=== PATIENT | female | born 1995 | race Caucasian/White ===

== ENCOUNTER 2016-08-01 10:18 | Emergency (ER) | payer BC ==
[~2016-08-01] VITALS: Ht 157.5 cm; Wt 62.0 kg
[2016-08-01 10:30] VITALS: Ht 157.5 cm; Wt 62.0 kg
--- NOTE | 2016-08-01 12:33 | ERD ---
ER Documentation Chief Complaint Date/Time DATE: 08/01/16 TIME: 12:31 Chief Complaint CAME IN VIA INTAKE DUE TO LEFT ARM NUMBNESS AND TACHYCARDIA HPI 20-year-old female comes emergency department with a left arm numbness for the past 3 days associated headache and dizziness. Patient states that the numbness is across the left anterior shoulder wrapping on the posterior aspect goes to her fifth digit. She also states that she has intermittent left-sided numbness in her left leg when she is sitting down. She describes a throbbing headache that is left temporal, she has had this headache on and off for approximately 1 month with associated lightheadedness. She states that pain medication including Tylenol and ibuprofen does seem to help the headache. She denies any blurred vision, weakness associated. ROS All systems reviewed and are negative except as per history of present illness. Medications Home Meds Active Scripts Naproxen* (Naprosyn*) 500 Mg Tablet, 500 MG PO BID Y for PAIN AND/OR INFLAMMATION, #30 TAB Prov:LENO BISHOP PA-C 08/01/16 PMhx/Soc Medical and Surgical Hx: pt denies Medical Hx, pt denies Surgical Hx Hx Alcohol Use: No Hx Substance Use: No Hx Tobacco Use: No Smoking Status: Never smoker Physical Exam Vitals Vital Signs Date Time Temp Pulse Resp B/P Pulse Ox O2 Delivery O2 Flow Rate FiO2 08/01/16 10:30 98.2 114 18 138/83 97 Physical Exam General: Well-developed, well-nourished. The patient appears in no acute distress. HEENT: Head is normocephalic, atraumatic. No scleral icterus. Neck: Supple. Nontender. Lungs: Clear to auscultation. Normal air movement. Heart: Regular rate and rhythm. S1 and S2 are normal. No murmurs, gallops, or rubs. Abdomen: Soft, nontender, nondistended. Bowel sounds are normoactive. Extremities: Reproducible numbness in the left arm and shoulder internal rotation. There are no bony deformities, patient has capillary refill less than 2 seconds bilaterally. Neuro: M/S: Alert and oriented Face: EOMI, CN II-XII grossly intact Motor: Normal strength throughout Sensation: Normal sensation throughout Speech: Normal Cerebel: Normal coordination Normal gait. Skin: Normal turgor. No rash or lesions. Results 24 hrs 12-lead EKG(interpreted by supervising physician): Dr. Bartlett Rate/Rhythm: Normal Sinus Rhythm, rate of 103 QRS, ST, T-waves: No changes consistent w/ acute ischemia, no intervals, no dysrhythmias, no ectopy Impression: No evidence of ischemia or arrhythmia PROCEDURE: CT brain without contrast CLINICAL INDICATION: Headache, dizziness, left-sided numbness TECHNIQUE: CT of the brain without contrast was performed on a multidetector CT scanner, with multiplanar reformats. One or more of the following dose reduction techniques were used: Automated exposure control, adjustment in mA and / or kV according to patient size, use of iterative reconstructive technique. CTDIvol = 32 mGy; DLP = 451 mGy-cm. COMPARISON: None available FINDINGS: No acute intracranial hemorrhage is identified. No extra-axial fluid collection is seen. There is no mass effect. No midline shift is identified. Ventricles and sulci are within normal limits for size and configuration. The density of the brain is within normal limits. De Leon-white differentiation is preserved. Osseous structures are unremarkable. Mastoid air cells and imaged paranasal sinuses grossly clear. IMPRESSION: Unremarkable noncontrast CT of the brain. RPTAT: VV .Hamlet Reyes MD, MD Date Time Electronically viewed and signed by .Hamlet Reyes MD, MD on 08/01/2016 13:22 Procedures/MDM 20-year-old female presents with headache, dizziness, left arm numbness as well as associated as left-sided numbness in the lower leg. Patient's examination does not show any signs of stroke, CVA. Differentials considered include complex migraine, tension headache, cervical radiculopathy, lumbar radiculopathy and among others. She states that her headache has been ongoing for approximately a month, and she has felt some stress and numbness is worse when she looking down doing schoolwork. Her numbness was able to be reproduced in the left arm and shoulder manipulation, suspicion for acute coronary syndrome is low. Doubt acute coronary syndrome, dissection, pulmonary embolus, cauda equina, epidural abscess. Departure Diagnosis: Primary Impression: Headache Additional Impression: Numbness Condition: Good Patient Instructions: LENO Rodriguez PA-C Aug 01, 2016 12:33
--- NOTE | 2016-08-01 13:22 | RADRPT ---
PROCEDURE: CT brain without contrast CLINICAL INDICATION: Headache, dizziness, left-sided numbness TECHNIQUE: CT of the brain without contrast was performed on a multidetector CT scanner, with multi planar reformats. One or more of the following dose reduction techniques were used: Automated expos ure control, adjustment in mA and / or kV according to patient size, use of iterative reconstructive technique. CTDIvol = 32 mGy; DLP = 451 mGy-cm. COMPARISON: None available FINDINGS: No acute intracranial hemorrhage is identified. No extra-axial fluid collection is seen. There is no mass effect. No midline shift is identified. Ventricles and sulci are within normal limits for size and configuration. The density of the brain is within normal limits. De Leon-white differentiation is preserved. Osseous structures are unremarkable. Mastoid air cells and imaged paranasal sinuses grossly clear. IMPRESSION: Unremarkable noncontrast CT of the brain. RPTAT: VV .Hamlet Reyes MD, MD Date Time Electronically viewed and signed by .Hamlet Reyes MD, on 08/01/2016 13:22 .O/
[2016-08-01] MEDS ORDERED: NAPR-260 PO (13:38)
[2016-08-01 14:05] VITALS: BP 126/78; PULSE 100; RESP 18
== END 2016-08-01 14:06 | disposition home or self-care (01) ==
LOC: FTE 10:18
DX: R51 Headache (principal); R42 Dizziness and giddiness
CPT/HCPCS: 70450; 93005